=== PATIENT | female | born 1945 | race Caucasian/White ===

== ENCOUNTER 2020-04-13 12:31 | Day surgery (SDC) | payer MEDICARE, SELFPAY ==
--- NOTE | 2020-04-12 09:05 | HP_ITS ---
DATE OF SERVICE: 04/13/2020 Date of surgery is April 13, 2020. PREOPERATIVE DIAGNOSES: 1. Painful hardware, right foot. 2. Skin ulcer, right great toe. 3. Possible osteomyelitis distal phalanx, right great toe. PLANNED PROCEDURES: 1. Removal of painful hardware, right foot. 2. Excision of skin ulcer, right foot. 3. Bone biopsy of the distal phalanx, right hallux. PLANNED ANESTHESIA: Local anesthesia. CHIEF COMPLAINT AND HISTORY OF PRESENT ILLNESS: Mere Ramos is a 75-year-old female, who relates history of painful nonhealing skin ulcer due to painful hardware that is protruding through the skin at the tip of the right great toe. This condition has been present since February 22, 2020. The patient has undergone extensive wound care, oral and topical antibiotics. The patient also had angioplasty at [facility] on March 14, 2020 to improve her circulation to her right lower extremity. The patient is now requesting surgical treatment. PAST MEDICAL HISTORY: Remarkable for rather severe osteoarthritis, back pain, diabetes, cataracts, diverticulosis, fibromyalgia, history of gallbladder disease, hepatitis A, hypertension, GERD, sciatica, thyroid disease, restless legs syndrome, chronic pain syndrome, asthma. MEDICATIONS: The patient takes Kaitlynn-Colace, lisinopril 20 mg, Reglan 10 mg, aspirin, Opal, memantine, hydroxyzine, Lipitor, levothyroxine, morphine sulfate, Prilosec, Pepcid, glimepiride. ALLERGIES: THE PATIENT HAS NEGATIVE REACTION TO ADHESIVE TAPE, LYRICA, ULTRAM, NEURONTIN, LEVAQUIN, KEFLEX, AMPICILLIN, GLUCOPHAGE, IMITREX, CIPRO. FAMILY HISTORY: Significant for heart disease, arthritis, diabetes, hypertension, vascular disease.. SOCIAL HISTORY: The patient denies smoking, denies use of alcohol. Denies use of caffeine and also denies use of any recreational drugs. PHYSICAL EXAMINATION: Podiatric physical exam: VASCULAR EXAM: Reveals +1/4 pulses, DP and PT arteries bilateral. DERMATOLOGIC: Reveals a skin ulcer down to the fat layer of the distal plantar aspect of the right great toe, measuring on March 29, 2020, 7 mm in length by 5 mm width by 2 to 3 mm in depth with the head of bone screw visualized in the skin ulcer wound after debridement. NEUROLOGIC EXAM: Reveals decreased vibratory sensation, decreased monofilament sensation bilateral feet. ORTHOPEDIC EXAM: Reveals flatfoot deformity bilateral feet with reconstruction for Charcot deformity of her right midfoot and rear foot. The patient also has hammertoe contracture, bilateral feet. The patient was seen most recently in my office on March 29, 2020. The patient has been instructed of the surgical risks and complications and is compliant with surgical treatment. Preoperative consent will be obtained on the day of surgery on April 13, 2020. The patient has been instructed to have her normal diet since this is local anesthesia and take all of her normal medications. JENNIFER Ga/ARUN / [id number]
[2020-04-13 12:58] VITALS: BP 139/96; PULSE 85; RESP 16; TEMP 36.3; O2SAT 96; BMI 44.4
--- NOTE | 2020-04-13 14:45 | PCN2_ITS ---
Brief Operative Note Date of procedure: 04/13/20 Pre-op diagnosis: painful harware right foot, skin ulcer right foot, osteomyel itis right foot Post-op diagnosis: same Procedure: removal of hardware right, excsision of skin ulcer right 3.3cm by 1.0 cm, bone biopsy right and partial phalangectomy right hallux Anesthesia: local Surgeon: Kris Orosco Estimated blood loss (mL): 5.0 Condition: stable
--- NOTE | 2020-04-13 19:53 | MHC.SHP ---
Pre-Procedural Eval Section B Chief Complaint: ulcer,hardware removal Allergies: Allergies Allergy/AdvReac Type Severity Reaction Status Date / Time adhesive tape Allergy Unknown Verified 04/12/20 10:23 ampicillin Allergy Unknown Verified 04/12/20 10:23 cephalexin [From Keflex] Allergy Unknown Verified 04/12/20 10:23 ciprofloxacin [From Cipro] Allergy Unknown Verified 04/12/20 10:23 gabapentin [From Neurontin] Allergy Unknown Verified 04/12/20 10:23 levofloxacin [From Levaquin] Allergy Unknown Verified 04/12/20 10:23 metformin [From Glucophage] Allergy Unknown Verified 04/12/20 10:23 pregabalin [From Lyrica] Allergy Unknown Verified 04/12/20 10:23 sumatriptan [From Imitrex] Allergy Unknown Verified 04/12/20 10:23 tramadol [From Ultram] Allergy Unknown Verified 04/12/20 10:23 Plan I have reviewed the history and physical and performed a pertinent physical examination on my patient. No changes have occurred unless specified.
--- NOTE | 2020-04-13 22:01 | OP_ITS ---
SURGEON: Kris Orosco DPM PREOPERATIVE DIAGNOSIS: POSTOPERATIVE DIAGNOSIS: PROCEDURE PERFORMED: ESTIMATED BLOOD LOSS: COMPLICATIONS: ANESTHESIA: Consisted of local administration of total of 4 mL of an equal mix of 2% lidocaine with epinephrine 1:100,000 and 0.5% Marcaine plain. ASSISTANTS: None. SPECIMENS: PREOPERATIVE DIAGNOSES: 1. Painful hardware, right foot. 2. Nonhealing skin ulcer, right foot. 3. Potential osteomyelitis, right hallux distal phalanx. POSTOPERATIVE DIAGNOSES: 1. Painful hardware, right foot. 2. Nonhealing skin ulcer, right foot. 3. Potential osteomyelitis, right hallux distal phalanx. 4. Hypertrophy of bone distal phalanx, right great toe. 5. Necrotic ingrown nail, right great toe. PROCEDURES PERFORMED: 1. Removal of painful hardware, right foot. 2. Excision of skin ulcer, measuring 3.3 cm in length x 1.0 cm in width. 3. Bone biopsy right hallux distal phalanx. 4. Partial phalangectomy of the distal phalanx. 5. Total nail excision, right great toe. INTRODUCTION: The patient was brought to the operating room, placed on the operating table in supine position. After having been suitably anesthetized with local infiltrative anesthesia, the right lower extremity was then prepped and draped in the usual sterile manner. Please note that prior to the start of the procedures, the right foot was exsanguinated utilizing Esmarch bandage and right ankle tourniquet was inflated to 250 mmHg pressure for the duration of the procedures. EXCISION OF SKIN ULCER, RIGHT GREAT TOE: Attention was directed to the distal aspect of the right great toe where the patient had skin ulcer with necrotic edges and the bone screw protruding into the ulcer. Utilizing a marking pen, the width of the incision was 1.0 cm at its greatest width overlying the bone screw and 2 converging elliptical incisions were placed transversely and distally of the distal aspect of the right great toe, measuring 3.3 to 3.4 cm in length. The incisions were effected and carried deeply. The ellipse of skin was excised from the wound in toto. REMOVAL OF PAINFUL HARDWARE, RIGHT FOOT: Attention was now directed to the bone screw, which was readily apparent and protruding from the distal phalanx. It was identified to be a ElsiZootcardis 4.0 mm diameter bone screw and was removed utilizing the Devex screwdriver system. This was sent to pathology. BONE BIOPSY DISTAL PHALANX, RIGHT GREAT TOE: Attention was now directed to the bone of the distal aspect of the right great toe, which was found to be necrotic. A sample was taken utilizing bone cutting forceps and sent to Pathology for evaluation of osteomyelitis. Please note that when attempting to close the skin margins, the remaining distal aspect of distal phalanx was found to be hypertrophic and had to be further remodeled utilizing combination of both bone cutting forceps and bone rongeur to perform a partial phalangectomy of the distal phalanx of the right great toe. The wound was irrigated with copious amounts of sterile saline. The skin margins were closed with 3-0 nylon and 4-0 nylon. TOTAL NAIL REMOVAL OF THE RIGHT GREAT TOE: The attention was now directed to the right great toe where there was found to be severe incurvation of both sides and particularly some necrotic skin along the medial border of the right great toe. The toenail was found to be hypertrophic, dystrophic, and discolored. The toenail was freed from its soft tissue attachments utilizing Clare elevator and curved hemostats, and then was excised from the wound in toto. CONCLUSION: At the conclusion of these procedures, the operative sites were dressed with sterile Xeroform, sterile Betadine-soaked gauze, Kerlix fluffs, sterile Webril, and Vito bandage. The patient tolerated the surgery and anesthesia well and left the operating room via cart to the recovery room with vital signs stable. FINAL DISPOSITION: The patient was discharged home with instructions for self-care include the followin. To keep the dressings dry, clean and intact. 2. To keep the right leg elevated with ice above the ankle. 3. Take all medications as prescribed. 4. To limit activity to minimum. 5. To always use surgical shoe and walker when ambulating. 6. Lastly, the patient will continue with her current pain management regimen and will continue with her ciprofloxacin 500 mg b.i.d. dosing. The patient has a followup appointment with myself for Sunday, April 19, 2020. JENNIFER Ga/ARUN / [phone]
== END 2020-04-13 15:25 | disposition home or self-care (01) ==
PROVIDERS: PCP Internal Medicine; Visit Provider Podiatrist
PROC: (CPT 20680; principal; 2020-04-13 14:00)
DX: T84.69XA Infection and inflammatory reaction due to internal fixation device of other site, initial encounter (principal); L97.512 Non-pressure chronic ulcer of other part of right foot with fat layer exposed; L08.89 Other specified local infections of the skin and subcutaneous tissue; B35.1 Tinea unguium; E11.621 Type 2 diabetes mellitus with foot ulcer; E11.52 Type 2 diabetes mellitus with diabetic peripheral angiopathy with gangrene; E11.69 Type 2 diabetes mellitus with other specified complication; L97.519 Non-pressure chronic ulcer of other part of right foot with unspecified severity; M86.671 Other chronic osteomyelitis, right ankle and foot; I10 Essential (primary) hypertension; Z79.84 Long term (current) use of oral hypoglycemic drugs; Z88.1 Allergy status to other antibiotic agents; Z88.8 Allergy status to other drugs, medicaments and biological substances; Z87.891 Personal history of nicotine dependence
CPT/HCPCS: 20680; 20240; 11750; 88300; 88304; 88305; 88307; 88311; 88312; J1100